=== PATIENT | female | born 1950 | race Caucasian/White ===

== ENCOUNTER 2016-10-17 19:23 | Emergency (ER) | payer BC, MEDICARE ==
--- NOTE | 2016-10-17 21:06 | RAD ---
HISTORY: Pain for 4 weeks. No known injury. COMPARISON: None. TECHNIQUE: four views of Right knee. FINDINGS: Bones: No fracture or dislocation. Joints: Normal. Soft tissue: Small joint effusion. IMPRESSION: Small joint effusion without fracture or dislocation.
[2016-10-17 21:11] LABS: INR 2.29; PROTHROMBIN TIME 25.1 SECONDS (9.3-11.4)
== END 2016-10-17 21:20 | disposition home or self-care (01) ==
LOC: ED 19:23
DX: M25.561 Pain in right knee (principal); M25.461 Effusion, right knee; Z86.718 Personal history of other venous thrombosis and embolism; Z79.01 Long term (current) use of anticoagulants